=== PATIENT | male | born 1935 | race Caucasian/White ===

== ENCOUNTER → 2018-04-14 | Outpatient (CLI) | payer OTHER ==
[~2018-04-14] MED LIST: ASPI81CH PO; ATOR10 PO; CARV6.25 PO; CIPR500 PO; DOCU100 PO; Dyazide 37.5-21 EACH PO; FURO20 PO; Hytrin2 MG PO; LEVFLO250 PO; LEVSOD137 PO; LISI20 PO; MELO7.5 PO; NITR.4SL SL; PANT40 PO; PHENA200 PO; POTCHL10ER PO; Pantoprazole So40 MG PO; Saw Palmetto450 MG PO; TAMS.4ER PO; TERA5 PO; Tylenol325 MG PO
[2018-04-18 14:24] LABS: Protein, Urine Random <5.0 mg/dL (0.0-11.9)
== END | disposition home or self-care (01) ==
LOC: LAB SHORT 10:40 → LAB 10:40
PROVIDERS: Internal Medicine
DX: I12.9 Hypertensive chronic kidney disease with stage 1 through stage 4 chronic kidney disease, or unspecified chronic kidney disease (principal); N18.3 Chronic kidney disease, stage 3 (moderate); D63.1 Anemia in chronic kidney disease; R60.0 Localized edema
CPT/HCPCS: 82570; 84156

== ENCOUNTER 2019-08-13 16:32 | Inpatient (IN) | payer OTHER ==
[~2019-08-13] VITALS: Ht 167.6 cm; Wt 89.4 kg
[~2019-08-13 16:32] MED LIST changes: -ATOR10 PO; -FURO20 PO; -LEVSOD137 PO; -LISI20 PO; -PANT40 PO; -POTCHL10ER PO; -TAMS.4ER PO
[2019-08-13 17:08] LABS: BASOPHILS ABSOLUTE AUTO 0.07 K/mm3 (0.00-0.23); BASOPHILS PERCENT AUTO 0 % (0-2); EOSINOPHILS PERCENT AUTO 0 % (0-6); Hematocrit 43.8 % (37.0-53.0); Hemoglobin 14.5 g/dL (13.5-17.5); IMMATURE GRAN ABSOLUTE AUTO 0.23 K/mm3 (0.00-0.10); IMMATURE GRAN PERCENT AUTO 1 % (0-1); LYMPHOCYTES ABSOLUTE AUTO 0.52 K/mm3 (0.84-5.20); LYMPHOCYTES PERCENT AUTO 2 % (21-46); MONOCYTES ABSOLUTE AUTO 1.54 K/mm3 (0.16-1.47); MONOCYTES PERCENT AUTO 6 % (4-13); Mean Corpuscular HGB 33.3 pg (26.0-34.0); Mean Corpuscular HGB Conc 33.1 g/dL (31.5-36.5); Mean Corpuscular Volume 101 fL (80-100); Mean Platelet Volume 10.3 fL (9.1-12.4); NEUTROPHILS PERCENT AUTO 91 % (41-73); Platelet Count 188 K/mm3 (150-400); RDW Coefficient Variation 12.9 % (11.7-14.2); RDW Standard Deviation 47.7 fL (35.1-46.3); Red Blood Cell Count 4.35 M/mm3 (4.30-5.90); White Blood Cell Count 25.56 K/mm3 (4.00-11.30)
[2019-08-13 17:31] LABS: Albumin, Blood 3.7 g/dL (3.4-5.0); Bilirubin, Total 1.7 mg/dL (0.1-1.0); Bun/Creatinine Ratio 16.2 (12.0-20.0); Calcium, Blood 8.8 mg/dL (8.5-10.1); Creatinine, Blood 1.67 mg/dL (0.60-1.20); Globulin, Blood 3.8 g/dL (2.2-4.0); Potassium, Blood 4.1 mmol/L (3.5-5.5); Total Protein, Blood 7.5 g/dL (6.4-8.2)
[2019-08-13 20:26] LABS: Source, Urine Catheter
[2019-08-13 20:29] LABS: Appearance, Urine Hazy (Clear); Bilirubin, Urine Neg (Neg); Blood, Urine 5+ (Neg); Color, Urine Amber (P-Yellow); Glucose Qualitative, Urine Neg (Neg); Ketones, Urine Neg (Neg); Leukocyte Esterase, Urine 3+ (Neg); Nitrite, Urine Neg (Neg); Protein, Urine 2+ (Neg); Specific Gravity, Urine 1.015 (1.003-1.022); Urobilinogen, Urine NORM (Normal)
[2019-08-13 20:36] LABS: Amorphous Light (0-Heavy); Bacteria Many /hpf; Mucus Light (0-Heavy); Squamous Epithelial Cells Few /hpf (Few)
[2019-08-13] MEDS ORDERED: LISI20 PO (21:24)
[2019-08-13] MEDS ORDERED: PANT40 PO (21:24)
[2019-08-13] MEDS ORDERED: POTCHL10ER PO (21:25)
[2019-08-13] MEDS ORDERED: Aspir 8181 MG PO (21:26)
[2019-08-13] MEDS ORDERED: FURO40 PO (21:26)
[2019-08-13] MEDS ORDERED: ATOR40TA PO (21:27)
[2019-08-13] MEDS ORDERED: Klor-Con 1010 MEQ PO (21:28)
[2019-08-13] MEDS ORDERED: ISOSORBIDE MONO30 MG PO (21:29)
[2019-08-13] MEDS ORDERED: SPIRONOLACTONE25 MG PO (21:30)
[2019-08-13] MEDS ORDERED: METOPROLOL SUCC25 MG PO (21:30)
[2019-08-13] MEDS ORDERED: TAMS.4ER PO (21:31)
[2019-08-13] MEDS ORDERED: LEVSOD137 PO (21:32)
--- NOTE | 2019-08-13 23:30 | NUR ---
AT 2235 PT ARRIVED TO ICU 3 FROM ER PCU ADMIT. PT IS [place] BUT A/O X4. DENIES PAIN. NO SOB OR VOMITIN. PT WAS INCONT OF URINE IN ATTENDS. CHANGED AND PERICARE DONE. URINE IS [place]ON[place] COLOR IN ATTENDS. WHEN PT ASSISTED TO BSC TO URINE IS RED. ER DID STRAIGHT CATH PRIOR TO ARRIVAL TO ICU. PT DOES HAVE PROSTATE ISSUES AND TAKES FLOMAX. WILL MONITOR. BOLUS RUNNING FROM ER, WILL START LR PER ORDERS WHEN COMPLETE. PT IS WEAK T/O. USES CANE AT HOME. NO SIGN OF DISTRESS. USES CALL LIGHT APPROPRIATELY.
[2019-08-14 03:55] LABS: BASOPHILS ABSOLUTE AUTO 0.04 K/mm3 (0.00-0.23); BASOPHILS PERCENT AUTO 0 % (0-2); Hematocrit 35.6 % (37.0-53.0); Hemoglobin 11.8 g/dL (13.5-17.5); LYMPHOCYTES ABSOLUTE AUTO 0.42 K/mm3 (0.84-5.20); LYMPHOCYTES PERCENT AUTO 2 % (21-46); MONOCYTES ABSOLUTE AUTO 1.05 K/mm3 (0.16-1.47); MONOCYTES PERCENT AUTO 6 % (4-13); Mean Corpuscular HGB 33.2 pg (26.0-34.0); Mean Corpuscular HGB Conc 33.1 g/dL (31.5-36.5); Mean Corpuscular Volume 100 fL (80-100); Mean Platelet Volume 10.8 fL (9.1-12.4); Platelet Count 138 K/mm3 (150-400); RDW Coefficient Variation 13.1 % (11.7-14.2); RDW Standard Deviation 47.8 fL (35.1-46.3); Red Blood Cell Count 3.55 M/mm3 (4.30-5.90); White Blood Cell Count 18.01 K/mm3 (4.00-11.30)
[2019-08-14 03:56] LABS: EOSINOPHILS PERCENT AUTO 0 % (0-6); IMMATURE GRAN ABSOLUTE AUTO 0.25 K/mm3 (0.00-0.10); IMMATURE GRAN PERCENT AUTO 1 % (0-1); NEUTROPHILS ABSOLUTE AUTO 16.25 K/mm3 (1.96-9.15); NEUTROPHILS PERCENT AUTO 90 % (41-73)
[2019-08-14 04:11] LABS: Bun/Creatinine Ratio 16.7 (12.0-20.0); Calcium, Blood 7.7 mg/dL (8.5-10.1); Creatinine, Blood 1.5 mg/dL (0.60-1.20); Potassium, Blood 3.8 mmol/L (3.5-5.5)
--- NOTE | 2019-08-14 06:17 | NUR ---
SUMMARY PT RESTING IN BED. A/O X4, AL[place]. PT HAS THE URGE TO VOID FREQUENTLY. WHEN BLADDER SCANNED THERE WAS 222 ML IN THE BLADDER. PT HAS ONLY BEEN ABLE TO VOID SCANT AMT OF URINE EACH TIME HE USES THE URINAL. CALLED DR. BAIRD THIS AM TO DISCUSS OPTIONS. PT HAD ABD/PELVIC CT THAT SHOWED ENLARGED PROSTATE, AND AFTER BEING STRAIGHT CATH'D IN ER URINE HAS BEEN RED COLORED. DR. BAIRD DOES NOT WANT THE PT TO HAVE A PHIPPS OR BE STRAIGHT CATH'D. PT IS RESTING IN BED WITH URINAL IN PLACE. GOT PT UP TO BSC 2X. WEAKNESS T/O. 2 PERSON TRANSFER WITH FWW. NO OTHER ISSUES SINCE ARRIVING FROM ER. NO SIGN OF DISTRESS. USES CALL LIGHT APPROPRIATELY.
--- NOTE | 2019-08-14 07:27 | NUR ---
BEGINNING OF SHIFT Assumed care of pt at 0700. Bedside report recieved from Nancy BRADY. Pt A&O x 4. Answers questions, follows commands, verbalizes needs. Pt on room air, SpO2 90% or greater. SR per monitor with PACs. Rate 60s. Bed in lowest position. Call light in reach. Pt denies need at this time.
--- NOTE | 2019-08-14 07:52 | NUR ---
DR SCHWARTZ IN TO SEE PT Provider states pt is okay for medical floor status without telemetry. Plan to continue IV fluids at increased rate for 24 hours.
--- NOTE | 2019-08-14 12:00 | NUR ---
BLADDER SCAN 212.
--- NOTE | 2019-08-14 13:00 | NUR ---
TRANSFER TO MEDICAL FLOOR Pt transferred to medical floor via wheelchair accompanied by this RN. Telephone report given to Jaret BRADY. Pt medical floor status without telemetry. Chart, medications, and belongings transferred with patient.
--- NOTE | 2019-08-14 14:27 | NUR ---
urine scan at 75
--- NOTE | 2019-08-14 19:09 | NUR ---
A+O, [place], WANTED TO MAKE SURE WE KNEW HE HAD BAD KNEES, CALL LIGHT INREACH, ABX AND FLUIDS INFUSED, RM AIR, WORKING WITH THERAPY
--- NOTE | 2019-08-15 03:45 | NUR ---
SHIFT SUMMARY ADMITTED FOR UTI/SEPSIS. DNR CODE. LR INFUSING @ 150 ML/HR, CARDIAC DIET, 1 ASSIST W/FWW. RA. BLADDER SCAN Q4 HRS. NO NEW CONCERNS THIS SHIFT
[2019-08-15 05:55] LABS: Hemoglobin 12.8 g/dL (13.5-17.5); Mean Corpuscular HGB 33.2 pg (26.0-34.0); Mean Corpuscular HGB Conc 32.8 g/dL (31.5-36.5); Mean Corpuscular Volume 101 fL (80-100); Platelet Count 147 K/mm3 (150-400); RDW Coefficient Variation 13.2 % (11.7-14.2); RDW Standard Deviation 49.1 fL (35.1-46.3); Red Blood Cell Count 3.86 M/mm3 (4.30-5.90); White Blood Cell Count 18.85 K/mm3 (4.00-11.30)
[2019-08-15 06:15] LABS: Bun/Creatinine Ratio 20.3 (12.0-20.0); Calcium, Blood 7.8 mg/dL (8.5-10.1); Creatinine, Blood 1.33 mg/dL (0.60-1.20); Potassium, Blood 3.8 mmol/L (3.5-5.5)
--- NOTE | 2019-08-15 18:12 | NUR ---
SHIFT SUMMARY PT WORKED WITH PHYSCIAL AND OCCUPATIONAL THERAPY THIS SHIFT. PT AMBULATED IN THE [place]. NO COMPLAINTS OF PAIN OR SHORTNESS OF BREATH. PT UP TO CHAIR FOR MEALS. CALLS APPROPRIATELY. NO ACUTE CHANGES THIS SHIFT. CALL LIGHT IN REACH. WILL CONTINUE TO MONITOR AND REPORT TO ONCOMING RN.
--- NOTE | 2019-08-16 04:17 | NUR ---
SHIFT SUMMARY ADMITTED FOR UTI/SEPSIS. DNR CODE. HOPEFUL FOR DC TODAY. LIVES WITH . STANDBY ASSIST W/FWW. BLADDER SCAN Q 6 HRS, CARDIAC DIET, RA, [place], A&O X4. IV ANTIBIOTICS ARE SCHEDULED. PERTINENT HX: BPH, BRADYCARDIA
[2019-08-16 08:40] LABS: Hematocrit 35.2 % (37.0-53.0); Hemoglobin 11.7 g/dL (13.5-17.5); Mean Corpuscular HGB Conc 33.2 g/dL (31.5-36.5); Mean Corpuscular Volume 99 fL (80-100); Mean Platelet Volume 10.9 fL (9.1-12.4); Platelet Count 167 K/mm3 (150-400); RDW Coefficient Variation 12.7 % (11.7-14.2); RDW Standard Deviation 46.4 fL (35.1-46.3); Red Blood Cell Count 3.55 M/mm3 (4.30-5.90); White Blood Cell Count 8.08 K/mm3 (4.00-11.30)
[2019-08-16 09:13] LABS: Bun/Creatinine Ratio 18.9 (12.0-20.0); Calcium, Blood 7.8 mg/dL (8.5-10.1); Creatinine, Blood 1.27 mg/dL (0.60-1.20); Potassium, Blood 3.7 mmol/L (3.5-5.5)
[2019-08-16 12:04] LABS: Source, Urine Catheter
[2019-08-16 12:28] LABS: Bilirubin, Urine Neg (Neg); Blood, Urine 5+ (Neg); Glucose Qualitative, Urine Neg (Neg); Ketones, Urine Neg (Neg); Leukocyte Esterase, Urine 2+ (Neg); Nitrite, Urine Neg (Neg); Protein, Urine 2+ (Neg); Specific Gravity, Urine 1.005 (1.003-1.022); Urobilinogen, Urine NORM (Normal)
[2019-08-16 12:54] LABS: Appearance, Urine Hazy (Clear); Color, Urine Amber (P-Yellow)
[2019-08-16 12:55] LABS: Red Blood Cells, Urine TNTC /hpf (0-2)
[2019-08-16 12:56] LABS: Bacteria Mod /hpf; Squamous Epithelial Cells Few /hpf (Few)
[2019-08-16] MEDS ORDERED: FINA5 PO (12:56)
--- NOTE | 2019-08-16 14:49 | NUR ---
DISCHARGE PT DISCHARGED TO HOME WITH HH. THIS RN EXPLAINED DISCHARGE INSTRUCTIONS AND MEDICATIONS TO PT AND HE REPORTS HE UNDERSTANDS. THIS RN DEMONSTRATED HOW TO EMPTY PHIPPS BAG AND IMPORTANCE OF KEEPING CLEAN. IV REMOVED WITHOUT DIFFICULTY. WAITING FOR PT'S RIDE.
--- NOTE | 2019-08-16 15:26 | NUR ---
DISCHARGE PT DISCHARGED TO HOME. PT TRANSFERRED VIA WHEELCHAIR BY RETAIL SALES SPECIALIST TO PRIVATE VEHICLE. BELONGINGS WITH PT.
== END 2019-08-16 15:22 | disposition home or self-care (01) | DRG 872 ==
LOC: ER 16:32 → MEDS 22:34 → ICUE 22:34 → ICUW 22:34 → ICUE 22:40 → MEDS 08-14 13:00
PROVIDERS: Internal Medicine; Physician Assistant; ADMIT Family Medicine
DX: A41.9 Sepsis, unspecified organism (principal); N39.0 Urinary tract infection, site not specified; I50.42 Chronic combined systolic (congestive) and diastolic (congestive) heart failure; N17.9 Acute kidney failure, unspecified; E87.1 Hypo-osmolality and hyponatremia; I13.0 Hypertensive heart and chronic kidney disease with heart failure and stage 1 through stage 4 chronic kidney disease, or unspecified chronic kidney disease; R65.20 Severe sepsis without septic shock; N40.0 Benign prostatic hyperplasia without lower urinary tract symptoms; N18.3 Chronic kidney disease, stage 3 (moderate); I44.0 Atrioventricular block, first degree; I45.10 Unspecified right bundle-branch block; I25.10 Atherosclerotic heart disease of native coronary artery without angina pectoris; E86.0 Dehydration; Z66 Do not resuscitate; Z88.0 Allergy status to penicillin; Z79.82 Long term (current) use of aspirin
CPT/HCPCS: 36415; 51702; 51798; 71045; 74176; 80048; 80053; 81001; 83605; 83690; 85025; 85027; 87086; 93005; 93010; 96365-59; 96366-59; 97112; 97162; 97165; 97530; 97535; 99285-25; A9270; A9270-GY; J0696; J1650; J7030; J7120

== ENCOUNTER 2019-08-19 07:31 | Emergency (ER) | payer OTHER ==
[~2019-08-19] VITALS: Ht 167.6 cm; Wt 87.1 kg
[~2019-08-19 07:31] MED LIST changes: +ATOR40TA PO; +Aspir 8181 MG PO; +FINA5 PO; +FURO40 PO; +ISOSORBIDE MONO30 MG PO; +Klor-Con 1010 MEQ PO; +LEVSOD137 PO; +LISI20 PO; +METOPROLOL SUCC25 MG PO; +PANT40 PO; +POTCHL10ER PO; +SPIRONOLACTONE25 MG PO; +TAMS.4ER PO
[2019-08-19 08:50] LABS: Chloride (POC) 104 mmol/L (98-108); Creatinine (POC) 1.2 mg/dL (0.8-1.3); Glucose (ISTAT POC) 97 mg/dL (70-99); Hemoglobin (POC) 11.9 g/dL (13.5-17.5); Potassium (POC) 3.8 mmol/L (3.5-5.5); Sodium (POC) 140 mmol/L (135-148); Total CO2 (POC) 23 mmol/L (21-32)
== END 2019-08-19 09:26 | disposition home or self-care (01) ==
LOC: ER 07:31
PROVIDERS: Emergency Medicine
DX: T83.098A Other mechanical complication of other urinary catheter, initial encounter (principal); Z88.0 Allergy status to penicillin; Z79.82 Long term (current) use of aspirin; Z79.899 Other long term (current) drug therapy; I25.10 Atherosclerotic heart disease of native coronary artery without angina pectoris; N18.3 Chronic kidney disease, stage 3 (moderate); I50.9 Heart failure, unspecified
CPT/HCPCS: 51702; 80047; 85014; 99283-25

== ENCOUNTER → 2019-10-04 | Outpatient (CLI) | payer OTHER ==
[2019-10-04 15:38] LABS: Bilirubin, Urine Neg (Neg); Blood, Urine 1+ (Neg); Glucose Qualitative, Urine Neg (Neg); Ketones, Urine Neg (Neg); Leukocyte Esterase, Urine 3+ (Neg); Nitrite, Urine Pos (Neg); Protein, Urine 1+ (Neg); Urobilinogen, Urine NORM (Normal)
[2019-10-04 16:01] LABS: Appearance, Urine Cloudy (Clear); Color, Urine Yellow (P-Yellow)
[2019-10-04 16:02] LABS: White Blood Cells, Urine 25-50 /hpf (0-5)
[2019-10-04 16:03] LABS: Bacteria Many /hpf; Squamous Epithelial Cells Rare /hpf (Few)
== END | disposition home or self-care (01) ==
LOC: LAB SHORT 14:48 → LAB 14:48
PROVIDERS: Internal Medicine
DX: N39.0 Urinary tract infection, site not specified (principal)
CPT/HCPCS: 81001; 87077; 87086; 87186